=== PATIENT | male | born 1990 | race Asian ===

== ENCOUNTER 2018-01-13 20:59 | Emergency (ER) | payer BC ==
[~2018-01-13] VITALS: Ht 172.7 cm; Wt 76.7 kg
[2018-01-13 21:14] VITALS: Ht 172.7 cm; Wt 76.7 kg
[2018-01-13 22:00] VITALS: BP 136/73
== END 2018-01-13 22:00 | disposition home or self-care (01) ==
LOC: ED 20:59
DX: S61.212A Laceration without foreign body of right middle finger without damage to nail, initial encounter (principal); W26.0XXA Contact with knife, initial encounter; Y93.89 Activity, other specified; Y92.89 Other specified places as the place of occurrence of the external cause; Y99.8 Other external cause status
CPT/HCPCS: 90715

== ENCOUNTER 2018-01-16 13:59 | Emergency (ER) | payer BC ==
[~2018-01-16] VITALS: Ht 172.7 cm; Wt 76.2 kg
[2018-01-16 14:05] VITALS: BP 156/98; Ht 172.7 cm; Wt 76.2 kg
== END 2018-01-16 17:40 | disposition home or self-care (01) ==
LOC: ED 13:59
DX: S61.212D Laceration without foreign body of right middle finger without damage to nail, subsequent encounter (principal); I10 Essential (primary) hypertension; X58.XXXD Exposure to other specified factors, subsequent encounter